=== PATIENT | male | born 1970 | race Caucasian/White ===

== ENCOUNTER → 2024-04-12 10:35 | Outpatient (REF) | payer MEDICARE, SELFPAY | LOC: DHSLP 10:35 | PROVIDERS: ATTENDING PHYSICIAN Internal Medicine Critical Care Medicine; FAMILY PHYSICIAN Internal Medicine Geriatric Medicine | DX: G47.30 Sleep apnea, unspecified (principal); R06.83 Snoring; R40.0 Somnolence | CPT/HCPCS: 95800 ==